=== PATIENT | female | born 1930 | race Caucasian/White ===

== ENCOUNTER → 2017-04-12 | Outpatient (CLI) | payer MEDICARE, BC ==
[~2017-04-12] MED LIST: ALPRAZOLAM0.25 MG PO; ARIMIDEX1 MG PO; ASPIRIN PO; BENICAR PO; CRESTOR PO; DYAZIDE 37.5/251 CAP PO; FLAX SEED OIL1000 MG PO; FUROSEMIDE40 MG PO; GABAPENTIN600 MG PO; KLOR-CON SPRIN10 MEQ PO; LORTAB 7.5-5001 TAB PO; MULTI-VITAMIN1 TAB PO; PRINIVIL20 M1 PO; SYNTHROID PO; TYLOX 5/500 CAP1 CAP PO; VIT C PO; VIT E PO
--- NOTE | ~2017-04-12 | CR63 ---
[facility] A Service of [facility] RADIOLOGY TEXT RESULTS PATIENT: JACQUE BENITO LOCATION: [facility] : 30 UNIT #: [id number] AGE: [address]: Contreras Carmen MD SEX: F ORDER DR: [id number] [facility] [address] [facility]. [place], [place] [address] [id number] O MR#: [id number] Acc #: [id number] NAME: JACQUE BENITO : 1930 SEX: F STUDY DATE/TIME: 04/12/2017 9:49 UNIT: [facility] ROOM: STUDY DESCRIPTION: CR Chest 2 View Attending Physician: Contreras Carmen M.D. Referring Physician: Contreras Carmen M.D. Ordering Physician: Contreras Carmen M.D. Primary Care Physician: Jose Harris D.O. MEDICAL IMAGING REPORT This report is preliminary unless electronic signature is present EXAMINATION PA and lateral chest DATE 04/12/2017 HISTORY 87-year-old female undergoing preoperative evaluation for left hip surgery. Additional history of diabetes, hypertension, hypothyroidism, breast cancer. COMPARISON PA and lateral chest radiograph 04/22/2016. FINDINGS No acute airspace disease. Benign calcified granuloma in the left upper lobe. Stable asymmetric elevation left hemidiaphragm. Thoracic aorta appears generally ectatic but unchanged. Heart size is within normal limits. No pleural effusion or pneumothorax. Surgical clips in the right chest wall. IMPRESSION 1. No acute chest findings. 2. Stable thoracic aortic ectasia and elevation left hemidiaphragm. 3. Benign calcified granulomatous changes. 4. No significant change compared to 04/22/2016. Dictated by... Alicia Severino M.D. THIS IS AN ELECTRONICALLY VERIFIED REPORT Alicia Severino M.D. at 04/13/2017 12:27 PM LLH/rnr [facility] A Service of [facility] RADIOLOGY TEXT RESULTS PATIENT: JACQUE BENITO [id number] : 30 UNIT #: [id number] AGE: [address]: Contreras Carmen MD SEX: F ORDER DR: TD: 04/12/2017 16:35 JOB #: [id number] MEDICAL IMAGING REPORT Page 1 of 1 COPY
--- NOTE | ~2017-04-12 | CO ---
Unit #: [id number] #: [id number] Patient: JACQUE BENITO [id number] [address] [place], [place] [address] [id number] O MR#: [id number] NAME: JACQUE BENITO ROOM: Age: 87 Sex: F Admission Date: 04/12/2017 : 1930 Attending Physician: Contreras Carmen M.D. Primary Care Physician: Jose Harris D.O. Consultation Date: 04/12/2017 CONSULTATION REPORT REASON FOR CONSULTATION Preoperative medical evaluation prior to left total hip arthroplasty scheduled by Dr. Carmen for April 24, 2017. HISTORY OF PRESENT ILLNESS Patient is an 87-year-old female, who presents to preprocedural screening for the reasons indicated above. Her only complaint at the time of this interview today is baseline left hip pain. She denies upper chest, upper back, arm, neck, jaw pain or pressure. Denies dyspnea on exertion, shortness of air, orthopnea, and PND. Denies history of sleep apnea. Denies lightheadedness, dizziness, presyncope, syncope, and palpitations. She has been evaluated by Dr. Carmen and scheduled for the above referenced procedure. PAST MEDICAL HISTORY 1. Osteoarthritis. 2. Possible prediabetes as the patient denies a history of diabetes. 3. History of breast cancer, status post lumpectomy. 4. Hypothyroidism. 5. History of back pain with associated peripheral neuropathy. 6. Hypertension. 7. Anxiety. PAST SURGICAL HISTORY 1. Hysterectomy. 2. Breast cancer, status post lumpectomy. 3. Scar tissue removed from breast. 4. Lymph node biopsy. 5. Repair of rectal fissure. Please note, patient denies personal and family history of complications to anesthesia. SOCIAL HISTORY Denies tobacco use, ETOH use, and illicit drug use. FAMILY HISTORY Per review of Dr. Carmen's office notes: Diabetes, heart disease, and hypertension. REVIEW OF SYSTEMS A 10-point review of systems was conducted and otherwise negative except as indicated under history of present illness above. Unit #: [id number] #: [id number] Patient: JACQUE BENITO ALLERGIES Morphine, penicillin, erythromycin all cause severe hives and itching. Patient wears a medical alert necklace for her allergies. Denies latex allergies. CURRENT MEDICATIONS 1. Synthroid 75 mcg p.o. daily. 2. Multivitamin one tab p.o. daily, will need to clarify dose. 3. Vitamin E 400 international units p.o. daily. 4. Vitamin C 500 mg p.o. daily. 5. Flax seed oil 1000 mg p.o. daily. 6. Aspirin 81 mg p.o. daily. 7. Lortab 7.5/500 mg tab one p.o. q.6 hours p.r.n. pain. 8. Prinivil 20 mg p.o. daily. 9. Furosemide 40 mg p.o. daily. 10. Klor-Con Sprinkle one tab p.o. daily. 11. Alprazolam 0.25 mg p.o. at bedtime. 12. Gabapentin 600 mg p.o. b.i.d. PHYSICAL EXAMINATION GENERAL: An 87-year-old female seated in wheelchair, awake, alert in no acute distress. VITAL SIGNS: Temperature 98.8, heart rate 83, respiratory rate 16, blood pressure 127/76, oxygen saturation 99% on room air. HEENT: Atraumatic, normocephalic. Sclerae anicteric. No discharge from eyes, ears, or nares. LUNGS: No preauricular, postauricular, tonsillar, submental, anterior, posterior, cervical adenopathy. No supra or infraclavicular adenopathy. ENDOCRINE: No thyromegaly, thyroid nodules or tenderness. RESPIRATORY: Clear to auscultation in all gant bilaterally without wheezes, rhonchi, or rales. CARDIOVASCULAR: S1, S2. Regular rate and rhythm without murmur or rub. GASTROINTESTINAL: Bowel sounds positive x4. Soft, nontender, nondistended. EXTREMITIES: No edema, cyanosis or clubbing. MUSCULOSKELETAL: Strength 5/5 all extremities bilaterally to flexion/extension. NEUROLOGIC: Alert and oriented x3. Speech clear. Cranial nerves II-XII grossly intact. Follows directions during examination. DIAGNOSTIC STUDIES LABORATORY: Hemoglobin A1c 5.8. WBC 6.8, hemoglobin 15.6, hematocrit 46, platelets 241,000. Sodium 139, potassium 3.8, chloride 96, CO2 of 32, glucose 134, BUN 18, creatinine 0.8, calcium 9.7. AST 28, ALT 15, alkaline phosphatase 86, bilirubin total 1.1, total protein 7.2, albumin 4.2. PT 10.4, INR 1. Urinalysis: Leukocyte esterase trace, nitrite negative, blood negative, WBCs 0-2, bacteria negative. Culture and sensitivity not indicated at this time. Blood type O negative. Antibody screen negative. MRSA swab pending. TSH, free T4 pending. IMAGING: Two-view chest x-ray report pending at this time. CARDIOVASCULAR: A 12-lead EKG: Normal sinus rhythm. Normal ECG. Confirmed report pending at this time. IMPRESSION 1. The patient is an 87-year-old female who presents to preprocedural screening for preoperative medical evaluation prior to Unit #: [id number] #: [id number] Patient: JACQUE BENITO left total hip arthroplasty as scheduled by Dr. Carmen. The patient's [place] Revised Cardiac Risk Index is 0.4 to 1% and represents the patient's rate of fatal or nonfatal myocardial infarction, cardiopulmonary arrest, arrhythmia, and/or pulmonary edema. This has been discussed in detail with the patient and she wishes to proceed with surgery as scheduled at this time. 2. Prediabetes: Patient denies diagnosis of diabetes. Patient's A1c is controlled and is consistent with prediabetes. Will monitor Accu-Cheks postoperatively on regular diet and adjust accordingly. Will add low-dose sliding scale insulin protocol as indicated. 3. History of breast cancer, status post lumpectomy. 4. Hypothyroidism: Will continue patient's home dose of Synthroid pending TSH and free T4 results. 5. History of back pain with peripheral neuropathy. 6. Hypertension: Monitor on current home medications and adjust accordingly perioperatively based on blood pressure trend. 7. Anxiety: Stable. 8. Left hip pain: Analgesics per MD order. Thank you for allowing us to participate in the care of this patient. Will gladly follow her for postop medical management pending order of Dr. Carmen. Dictated by... Mahnaz Atwood A.P.R.N. for Robb Mauro M.D. GLADYS/jennifer TD: 04/13/2017 08:57 JOB #: [id number] CONSULTATION REPORT Page 1 of 1 X Mahnaz Atwood APRN CONSULTATION REPORT
--- NOTE | ~2017-04-12 | EKG ---
PATIENT: JACQUE BENITO UNIT #: [id number] Ventricular Rate: 77 BPM Atrial Rate: 77 BPM P-R Interval: 170 ms QRS Duration: 88 ms Q-T Interval: 382 ms QTC Calculation(Bezet): 432 ms P [place]: 16 degrees Calculated R [place]: 4 degrees Calculated T [place]: 15 degrees Diagnosis Line: Normal sinus rhythm Diagnosis Line: Normal ECG Diagnosis Line: No previous ECGs available Diagnosis Line: Confirmed by DEONDRE ARMAS MD ([id number]) on 04/12/2017 Diagnosis Line: 7:23:54 PM INTERPRETING MD: CHANDA BUSTAMANTE
[2017-04-12 08:31] LABS: HEMOGLOBIN 15.6 gm/dL (12.0-16.0); MEAN CELL VOLUME 89.9 FL (83-96); MEAN CORPUSCULAR HEMOGLOBIN 30.4 PG (28-34); MEAN CORPUSCULAR HGB CONC 33.8 g/dL (30-36); MEAN PLATELET VOLUME 7.8 FL (6.5-11.5); RED BLOOD COUNT 5.12 X10e (3.90-5.30); RED CELL DISTRIBUTION WIDTH 12.7 % (11.0-15.5); WHITE BLOOD COUNT 6.8 X10e3 (4.0-10.5)
[2017-04-12 08:32] LABS: URINE APPEARANCE CLEAR; URINE BILIRUBIN NEG (NEG); URINE BLOOD NEG (NEG); URINE COLOR YELLOW; URINE GLUCOSE NEG (NEG); URINE KETONE NEG (NEG); URINE LEUKOCYTE ESTERASE TRACE (NEG); URINE NITRATE NEG (NEG); URINE PROTEIN NEG (NEG); URINE SPECIFIC GRAVITY 1.006 (1.003-1.035); URINE UROBILINOGEN 0.2 MG/DL (NEG)
[2017-04-12 08:34] LABS: CULTURE INDICATED? NO; URBCS1 AUWI 0-2 /[HPF] (0-2); URINE BACTERIA AUWI NEG (NEGATIVE); URINE SQUAMOUS EPITHELIAL CELL NONE SEEN /[HPF]; UWBCS1 AUWI 0-2 (0-5)
[2017-04-12 08:43] LABS: PROTHROMBIN TIME (PATIENT) 10.4 SECONDS (10.0-11.7)
[2017-04-12 09:20] LABS: ALBUMIN SERUM 4.2 g/dL (3.5-5.0); BILIRUBIN,TOTAL 1.1 mg/dL (0.2-2.0); BUN/CREATININE RATIO 22.5; CALCIUM SERUM 9.7 mg/dL (8.4-10.2); CREATININE SERUM 0.8 mg/dL (0.6-1.4); GLOM FILT RATE Estimated 66.3 mL/min (>60); POTASSIUM 3.8 mmol/L (3.5-5.1); PROTEIN TOTAL SERUM 7.2 g/dL (6.0-8.3)
[2017-04-12 14:30] LABS: THYROID STIMULATING HORMONE 0.66 uIU/ml (0.34-5.60)
[2017-04-12 14:36] LABS: FREE THYROXIN (T4) 1.36 ng/dL (0.58-1.64)
== END | disposition home or self-care (01) ==
LOC: CAMB 07:59 → EDBD 07:59 → CAMB 08:00
PROVIDERS: Orthopaedic Surgery
DX: Z01.818 Encounter for other preprocedural examination (principal); M16.12 Unilateral primary osteoarthritis, left hip; I77.810 Thoracic aortic ectasia; J98.6 Disorders of diaphragm
CPT/HCPCS: 36415; 71020; 80053; 81003; 83036; 84439; 84443; 85027; 85610; 86850; 86900; 86901; 87070; 93005